=== PATIENT | female | born 2000 | race Caucasian/White ===

== ENCOUNTER 2019-10-15 14:39 | Emergency (ER) | payer SELFPAY ==
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
[2019-10-15 16:01] VITALS: BP 138/96
== END 2019-10-15 15:45 | disposition home or self-care (01) ==
LOC: ED 14:39
DX: F10.929 Alcohol use, unspecified with intoxication, unspecified (principal)
CPT/HCPCS: 99282